=== PATIENT | female | born 1960 | race Caucasian/White ===

== ENCOUNTER → 2017-05-09 | Outpatient (CLI) | payer BC | LOC: MC.RAD 09:00 | DX: Z12.31 Encounter for screening mammogram for malignant neoplasm of breast (principal) ==

== ENCOUNTER → 2018-10-23 | Outpatient (CLI) | payer BC ==
[~2018-10-23] MED LIST: TAMIFLU 75MG75 MG
== END ==
LOC: MC.RAD 08:26
DX: Z12.31 Encounter for screening mammogram for malignant neoplasm of breast (principal)